=== PATIENT | female | born 1960 ===

== ENCOUNTER 2016-12-02 05:12 | Observation (INO) | payer OTHER ==
[2016-12-02] VITALS (19 sets, daily range): BP systolic 84–133; BP diastolic 40–88
[~2016-12-02] VITALS: Ht 167.6 cm; Wt 114.8 kg
[2016-12-02] MEDS ORDERED: LOSARTAN POTASS50 MG ORAL (06:11)
[2016-12-02] MEDS ORDERED: THORAZINE25 MG PO (06:11)
[2016-12-02] MEDS ORDERED: CYMBALTA60 MG ORAL ×2 (06:11→07:49)
[2016-12-02] MEDS ORDERED: FUROSEMIDE20 M1 ORAL (06:11)
[2016-12-02] MEDS ORDERED: ATENOLOL25 MG ORAL (06:11)
[2016-12-02] MEDS ORDERED: HYDROCHLOROTHIA25 MG ORAL (06:11)
[2016-12-02] MEDS ORDERED: BACLOFEN10 MG ORAL ×2 (06:11→07:49)
[2016-12-02] MEDS ORDERED: CLONAZEPAM1 MG PO ×2 (06:11→07:49)
[2016-12-02] MEDS ORDERED: Lacri-Lube Opth Oint 3.5gm ONE (06:34)
[2016-12-02] MEDS ORDERED: Vancomycin 1gm inj IVPB ONE ×2 (06:34→08:01)
[2016-12-02] MEDS ORDERED: Bupivacaine w/Epi 0.5% 30ml Vial INJ ONE (06:34)
[2016-12-02] MEDS ORDERED: Surgicel 4in x 8in TOPIC ONE (06:35)
[2016-12-02] MEDS ORDERED: Glycopyrrolate 0.2mg/ml 1ml Vial ONE (07:00)
[2016-12-02] MEDS ORDERED: NS Irrig 1000ml ONE (07:00)
[2016-12-02] MEDS ORDERED: fentaNYL 250mcg/5ml ONE (07:00)
[2016-12-02] MEDS ORDERED: ceFAZolin sod 1 GM in NS 55 ML IVPB ONE (07:00)
[2016-12-02] MEDS ORDERED: Lidocaine 1% MPF 10mg/ml 5ml ONE (07:00)
[2016-12-02] MEDS ORDERED: Midazolam 2mg/2ml Inj ONE (07:00)
[2016-12-02] MEDS ORDERED: Nimbex 2mg/ml Inj 10ML IVP ONE (07:00)
[2016-12-02] MEDS ORDERED: Lidocaine 1% Plain 30 ml INJ ONE (07:00)
[2016-12-02] MEDS ORDERED: Sterile Water Irrig 1000ml IRRIG ONE (07:00)
[2016-12-02] MEDS ORDERED: Dexamethasone 20mg/5ml IVP ONE (07:00)
[2016-12-02] MEDS ORDERED: Propofol 10mg/ml 100ml btl IV ONE (07:00)
[2016-12-02] MEDS ORDERED: Dexamethasone 4mg/ml vial ONE (07:00)
[2016-12-02] MEDS ORDERED: Neostigmine 1mg/ml 10ml Inj ONE (07:00)
[2016-12-02] MEDS ORDERED: LR 1000ml ONE (07:00)
[2016-12-02] MEDS ORDERED: LR 1000ml 1,000 ML IVLG SCH (07:09)
--- NOTE | 2016-12-02 07:09 | Anethesia Preoperative Eval ---
Anesthesia Pre-op PMH/ROS General Date of Evaluation: Dec 02, 2016 Time of Evaluation: 07:06 Anesthesiologist: Angel ASA Score: ASA 3 Mallampati Score Class I : Soft palate, uvula, fauces, pillars visible Class II: Soft palate, uvula, fauces visible Class III: Soft palate, base of uvula visible Class IV: Only hard plate visible Mallampati Classification: Class III Surgeon: Star Diagnosis: Back Pain Surgical Procedure: L5-S1 Microdiscetomy Family History: no anesthesia problems Allergies: Coded Allergies: No Known Allergies (Unverified , 12/01/16) Medications: see eMAR Past Medical History Cardiovascular: Reports: HTN Pulmonary: Reports: LESA Neurologic/Psychiatric: Reports: depression/anxiety Other: obesity - BMI 40 PSxH Narrative: NEERAJ Anesthesia Pre-op Phys. Exam Physician Exam Last Vital Signs Date Time Temp Pulse Resp B/P Pulse Ox O2 Delivery O2 Flow Rate FiO2 12/02/16 06:37 97.9 75 20 112/76 96 Room Air Constitutional: NAD Neurologic: CN 2-12 intact Cardiovascular: RRR Respiratory: CTA Gastrointestinal: S/NT/ND Airway Exam Mallampati Score: Class III MO: limited ROM: limited Teeth: intact Anesthesia Pre-op A/P Risk Assessment & Plan Assessment: ASA 3 Plan: GA, BIS, Glidescope Pre-Antibiotics Dru Grams Ancef IV Given Within 1 Hr of Incision: Yes Time Given: 07:26 Wesley Ortiz MD Dec 02, 2016 07:09
[2016-12-02] MEDS ORDERED: fentaNYL 100 mcg/2 mL IV PRN (07:15)
[2016-12-02] MEDS ORDERED: Ketorolac 60mg Inj IV PRN (07:15)
[2016-12-02] MEDS ORDERED: Metoclopramide 10mg/2ml Inj IVP PRN (07:15)
[2016-12-02] MEDS ORDERED: Midazolam 2mg/2ml Inj IVP PRN (07:15)
[2016-12-02] MEDS ORDERED: Oxycodone/Acetaminophen 5-325 ORAL PRN (07:15)
[2016-12-02] MEDS ORDERED: LORazepam Inj 2mg/ml 1ml IV PRN (07:15)
[2016-12-02] MEDS ORDERED: Ketorolac 30mg Inj IV PRN (07:15)
[2016-12-02] MEDS ORDERED: Atropine Inj 1mg/10ml Syr IV PRN (07:15)
[2016-12-02] MEDS ORDERED: Hydromorphone 0.5mg/0.5ml inj IVP PRN (07:15)
[2016-12-02] MEDS ORDERED: Norco 5mg/325mg tab ORAL PRN (07:15)
[2016-12-02] MEDS ORDERED: Norco 7.5mg/325mg tab ORAL PRN (07:15)
[2016-12-02] MEDS ORDERED: DiphenhydrAMINE 50mg/ml Inj IVP PRN (07:15)
[2016-12-02] MEDS ORDERED: Meperidine 25mg/0.5ml Inj IV PRN (07:15)
--- NOTE | 2016-12-02 07:16 | Pre-Procedure Note/Attestation ---
Pre-Procedure Note/Attestation Complete Prior to Procedure Planned Procedure: not applicable Procedure Narrative: L5-S1 microdiscectomy Indications for Procedure Pre-Operative Diagnosis: L5-S1 HNP Attestation I attest that I discussed the nature of the procedure; its benefits; risks and complications; and alternatives (and the risks and benefits of such alternatives ), prior to the procedure, with the patient (or the patient's legal motor vehicle field representative). I attest that, if there was a reasonable possibility of needing a blood transfusion, the patient (or the patient's legal motor vehicle field representative) was given the [facility] standardized written summary, pursuant to the [place] Blood Safety Act ([place] Health and Safety Code # 1645, as amended). I attest that I re-evaluated the patient just prior to the surgery and that there has been no change in the patient's H&P, except as documented below: DIMPLE TRISTAN Dec 02, 2016 07:16
[2016-12-02] MEDS: Thrombin 5000 units TOPIC ONE ×2 (07:54→08:47)
[2016-12-02] MEDS: Bacitracin 50000 Units Vial ONE ×2 (07:54→08:45)
[2016-12-02] MEDS ORDERED: Lidocaine 1% 10mg/ml/Epi 0.005mg/ml 30ml vial INJ ONE (07:57)
[2016-12-02] MEDS ORDERED: Morphine Sulfate 4mg/ml Inj IV PRN (08:00)
[2016-12-02] MEDS ORDERED: Chloraseptic Spray 20mL Bottle ORAL PRN (08:00)
[2016-12-02] MEDS ORDERED: Morphine Sulfate 4mg/ml Inj IM PRN (08:00)
--- NOTE | 2016-12-02 08:03 | Immediate Post-Op Evaluation ---
Immediate Post-Op Evalulation Immediate Post-Op Evalulation Procedure: L5-S1 Microdiscetomy Date of Evaluation: Dec 02, 2016 Time of Evaluation: 09:42 IV Fluids: 400 LR Blood Products: 0 Estimated Blood Loss: 25 Urinary Output: 0 Blood Pressure Systolic: 109 Blood Pressure Diastolic: 88 Pulse Rate: 82 Respiratory Rate: 18 O2 Sat by Pulse Oximetry: 86 Temperature (Fahrenheit): 97 Pain Score (1-10): 3 Nausea: No Vomiting: No Complications 0 Patient Status: awake, reacts, patent, extubated, none Hydration Status: adequate Dru Grams Ancef IV Given Within 1 Hr of Incision: Yes Time Given: 07:26 Wesley Ortiz MD Dec 02, 2016 08:03
[2016-12-02] MEDS ORDERED: Acetaminophen (Non formulary) 100 ML IV ONE (09:00)
--- NOTE | 2016-12-02 09:09 | Brief Operative Note ---
Immediate Post Operative Note Operative Note Pre-op Diagnosis: L5-S1 HNP Procedure: Laminectomy L5 Microdiscectomy L5-S1 Body [place] Local SSEP Microscope Xrar Post-op Diagnosis: same as pre-op Findings: consistent w/pre-op dx studies Surgeon: Star CAMPUZANO Fisher Net: Davey RICHMOND Anesthesiologist: Angel Anesthesia: general Specimen: none Complications: none Condition: stable Estimated Blood Loss: minimal Drains: none Implant(s) used?: No DIMPLE TRISTAN Dec 02, 2016 09:09
[2016-12-02] MEDS ORDERED: Norco 7.5mg/325mg tab ORAL ONE (11:15)
--- NOTE | 2016-12-02 11:50 | Diagnostic Imaging Report ---
Indication: PAIN, intraoperative Technique: Digital intraoperative images Comparison: None Findings: Surgical tools are seen projected posterior to what are presumably L5 and S1. Impression: Intraoperative imaging, as described
[2016-12-02] MEDS: Norco 10mg/325mg tab ORAL PRN ×3 (13:00→22:45)
[2016-12-02] MEDS ORDERED: D5 1/2NS 1,000 ML IV SCH (13:00)
[2016-12-02] MEDS: DULoxetine 30mg cap ORAL SCH (13:00)
[2016-12-02] MEDS: ceFAZolin sod 1 GM in D5W 55 ML IV SCH ×2 (15:31→22:36)
[2016-12-02] MEDS: Docusate 100mg/10ml Liq NG SCH (17:12)
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
--- NOTE | 2016-12-02 19:34 | Cardiology Progress Note ---
Assessment/Plan Assessment/Plan [id number] Objective Last 24 Hour Vital Signs Date Time Temp Pulse Resp B/P Pulse Ox O2 Delivery O2 Flow Rate FiO2 12/02/16 17:46 98.0 12/02/16 15:00 98.0 76 20 133/68 97 Nasal Cannula 2.0 12/02/16 13:00 97.0 74 18 122/75 97 Nasal Cannula 2.0 12/02/16 12:00 96.4 78 18 119/63 95 Room Air 12/02/16 11:45 98.0 77 16 102/52 95 Nasal Cannula 3.0 12/02/16 11:44 97.1 12/02/16 11:44 97.1 12/02/16 11:41 77 16 102/52 95 Nasal Cannula 3.0 12/02/16 11:36 75 16 94/54 94 Nasal Cannula 3.0 12/02/16 11:31 74 16 99/57 94 Nasal Cannula 3.0 12/02/16 11:26 76 16 92/59 94 Nasal Cannula 3.0 12/02/16 11:12 79 16 97/58 93 Nasal Cannula 3.0 12/02/16 11:00 77 16 88/43 92 Nasal Cannula 3.0 12/02/16 10:45 76 16 88/42 91 Nasal Cannula 3.0 12/02/16 10:30 76 16 84/40 91 Nasal Cannula 3.0 12/02/16 10:15 76 16 98/52 91 Nasal Cannula 3.0 12/02/16 10:00 79 16 90/55 91 Simple Mask 10.0 12/02/16 09:51 80 16 92/54 91 Simple Mask 10.0 12/02/16 09:46 78 16 109/88 88 Simple Mask 10.0 12/02/16 09:41 97.1 78 16 94/48 85 Simple Mask 10.0 12/02/16 09:36 82 18 86 12/02/16 06:37 97.9 75 20 112/76 96 Room Air CASIE BARRETO Dec 02, 2016 19:34
--- NOTE | 2016-12-02 23:30 | Operative Note - Dictated ---
DATE OF OPERATION: 12/02/2016 SURGEON: Dax Graves, Ph.D. M.D. PLANT BUYER: YI Herrera. ANESTHESIOLOGIST: Wesley Ortiz M.D. ANESTHESIA: General with intubation. ADMITTING/PREOPERATIVE DIAGNOSIS: Posttraumatic lumbar herniated nucleus pulposus. POSTOPERATIVE DIAGNOSIS: Posttraumatic lumbar herniated nucleus pulposus. OPERATIVE PROCEDURE: 1. Lumbar microdiscectomy L5-S1. 2. Hemilaminotomy bilateral L5, superior S1. 3. SSEP monitoring. 4. High-power microscopic dissection. 5. Intraoperative fluoroscopy interpreted by surgeons. 6. Local anesthetic applied by surgeon, 1% lidocaine without epinephrine. 7. The patient's body habitus greater than 95th percentile for weight. SPECIMEN: None. ESTIMATED BLOOD LOSS: Less than 10 mL. COMPLICATIONS: None. POSTOP CONDITION: Good/stable. DESCRIPTION OF PROCEDURE: The patient was brought to the operating room and in supine position, general anesthesia with intubation was induced. IV antibiotics and IV Decadron were administered 30 minutes prior to incision time. The patient was carefully turned and positioned in a prone position. Lumbodorsal spine was sterilely prepped and spinal needle was placed midline into the subcutaneous tissue only with cross-table fluoroscopic image obtained under sterile conditions demonstrating the correct level for incision placement. Needle was removed. Back was re-sterilely prepped and draped free in usual sterile fashion. A longitudinal incision over the appropriate interval was sharply placed in the dermis and epidermis. Electrocautery dissection was carried through extensive subcutaneous tissue. Thickness of the tissue approximately 13 cm. Lumbodorsal fascia was incised right and left of the midline over the L5-S1 interval. Marker was placed, cross-table imaging obtained, interpreted by surgeon demonstrating the correct level and position for further dissection. Levels of the markers were recorded. Marker was removed, retractors placed. Under high-power magnification, the L5 and S1 lamina were exposed. Bilateral hemilaminotomy inferior L5, superior S1. Dissection was carried lateral to the dural tube bilaterally. No dural tears or leaks noted anytime during the procedure. Disk space identified. Minimal epidural bleeding was controlled with minimal bipolar electrocauterization. SSEP monitoring stable. Annulotomy following microdiscectomy not exceeding 12 mm in the AP, medial, or lateral dimensions. No gross bleeding from the disk space anytime during the procedure. The space was irrigated with antibiotic-containing saline. Large herniated disk was noted. Disk space was irrigated, no further fragments identified. Inspection, no evidence of cerebrospinal fluid leak. Wound was copiously irrigated with antibiotic-containing saline. Interval overlaying with FloSeal. Reapproximation of the lumbodorsal fascia with #1 Vicryl suture material. Inverted suture reapproximation of multiple layers of the subcutaneous tissue. Prior to tying of the sutures, 2 grams of vancomycin powder was applied. Dermis and epidermis were further reapproximated with staple sutures. Local anesthetic was applied by surgeon, subcutaneous interval 1% lidocaine with epinephrine. Sterile bandage was applied and maintained in place with tape. The patient was carefully turned from the prone to the supine position on the transport bed, where she was awakened, extubated in the operating room, and transported to postoperative recovery in good stable condition. Dax Graves M.D. DR: ESPERANZA JOB#: [id number] CC:
[2016-12-03] VITALS: BP 110/74
[2016-12-03 04:00] VITALS: BP 110/73
[2016-12-03] MEDS: ceFAZolin sod 1 GM in D5W 55 ML IV SCH (05:53)
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
[2016-12-03] MEDS: Docusate 100mg/10ml Liq NG SCH (07:55)
[2016-12-03] MEDS: Norco 10mg/325mg tab ORAL PRN (07:56)
[2016-12-03] MEDS: DULoxetine 30mg cap ORAL SCH (07:56)
[2016-12-03 08:33] VITALS: BP 113/66
[2016-12-03 12:00] VITALS: BP 104/62
--- NOTE | 2016-12-03 12:30 | Progress Note ---
DATE: 12/03/2016 ACUTE PAIN MANAGEMENT PHYSICIAN PROGRESS NOTE MEDICATIONS: Medication administration record reviewed. Medications include baclofen, Dulcolax, Klonopin, Catapres, Benadryl, Colace, Cymbalta, morphine, Nicoderm patch, Zofran, Protonix, and Chloraseptic spray. PHYSICAL EXAMINATION: VITAL SIGNS: Afebrile, pulse 70, respirations 18, oxygen saturation 95% on room air and blood pressure 110/73. LABORATORY STUDIES: No interval laboratory studies. I spent over 60 minutes in consultation today. I saw the patient at bedside. After discussion with the nurse RN, . The patient is alert and orient x3. She has already been ambulating out of bed. She is grossly neurologically intact with 5/5 dorsiflexion, 5 5 plantar flexion, bilateral lower extremities. The patient denies any shortness of breath or chest pain. The patient has no nausea symptoms. The patient is tolerating clear liquids and I have asked the nurse to advance her diet this morning to regular so that we can help expedite her hospital discharge. She has been receiving her b.i.d. Klonopin without any over sedation and good for pain. Her hydrocodone has been affected and continue her breakthrough morphine injections as well as for severe pain episodes. I examined the lumbar spine wound, which showed the dressing clean and dry. I will ask the nurse to check with the surgeon regarding dressing change prior to hospital discharge. The patient can arrange for home transportation by her friend, Disha. I demonstrated proper use of incentive spirometry and encourage good pulmonary toilet, with a body mass index of 41. She is voiding urine without difficulty. I will defer discharge planning to the surgeon, Dr. Graves, with hopeful discharge home in the next 12 hours. Asad Barton M.D. DR: Hans JOB#: [id number] CC:
[2016-12-03] MEDS ORDERED: Morphine Sulfate 2mg/ml Inj IV PRN (13:15)
== END 2016-12-03 12:40 | disposition home or self-care (01) ==
LOC: SUR 05:12 → 3E 12:03 → UNDODISOB 12-03 12:40
DX: M51.16 Intervertebral disc disorders with radiculopathy, lumbar region (principal); E66.01 Morbid (severe) obesity due to excess calories; Z68.41 Body mass index [BMI] 40.0-44.9, adult; I10 Essential (primary) hypertension; G47.33 Obstructive sleep apnea (adult) (pediatric); I65.21 Occlusion and stenosis of right carotid artery; I25.10 Atherosclerotic heart disease of native coronary artery without angina pectoris; F32.9 Major depressive disorder, single episode, unspecified; F17.210 Nicotine dependence, cigarettes, uncomplicated; F41.9 Anxiety disorder, unspecified; F13.20 Sedative, hypnotic or anxiolytic dependence, uncomplicated; Z90.710 Acquired absence of both cervix and uterus; Z98.51 Tubal ligation status
CPT/HCPCS: 63030; 72020; 76001; 96360; 96361; 97110; 97116; 97161; 97530; G0378; J0690; J1100; J2001; J2250; J2270; J2405; J2704; J2710; J3010; J3370; J7120; 94003; 94150